=== PATIENT | male | born 1975 | race Caucasian/White ===

== ENCOUNTER → 2022-01-09 11:11 | Outpatient (BNVA) | payer OTHER, SELFPAY | PROVIDERS: PCP Family Medicine; Visit Provider Family Medicine | DX: B34.9 Viral infection, unspecified (principal); J06.9 Acute upper respiratory infection, unspecified | CPT/HCPCS: 87426 ==

== ENCOUNTER → 2022-01-26 09:05 | Outpatient (BNVA) | payer OTHER, SELFPAY | PROVIDERS: PCP Family Medicine; Visit Provider Family Medicine | DX: Z13.6 Encounter for screening for cardiovascular disorders (principal); Z12.5 Encounter for screening for malignant neoplasm of prostate | CPT/HCPCS: 80053; 80061; 85025; G0103 ==

== ENCOUNTER 2022-03-02 05:43 | Day surgery (SDC) | payer OTHER, SELFPAY ==
[2022-02-28 13:03] VITALS: BMI 27.5
[2022-03-02 06:07] VITALS: BP 112/72; PULSE 62; RESP 18; TEMP 36.4; O2SAT 97
[2022-03-02] MEDS: sodium chloride 0.9% 1,000 ML 30 ML IV (06:16)
--- NOTE | 2022-03-02 06:18 | ANES.PREANE2 ---
Pre-Anesthetic Assessment Height/Weight: Height 1.83 m Weight 92.079 kg Temp Pulse Resp BP Pulse Ox O2 Del Method 97.6 F 62 18 112/72 97 03/02/22 06:07 03/02/22 06:07 03/02/22 06:07 03/02/22 06:07 03/02/22 06:07 03/02/22 06:07 Preop Diagnosis: Screening colonoscopy Operation Date: 03/02/22 07:00 Proposed Procedures p Colonoscopy 04685,Z12.11(Not Applicable) - Portillo Brar MD Familial anesthetic complications: None Was Beta Tresa taken within 24 hours: N/A Was Clonidine taken within 24 hours: N/A Last intake: Intake Last Liquid Date 03/01/22 Last Liquid Time 19:00 Last Solid Date 02/28/22 Last Solid Time 18:00 Social Alcohol (Social) and No tobacco Exam alert, oriented x 3, clear to auscultation bilaterally and regular rate & rhythm Airway Submandibular: within normal limits Cervical ROM: within normal limits Mallampati: Class III Dentition: full History/ROS No significant history except as noted Pulmonary Upper Respiratory Infection (COVID January 09) CV/HEM None reported None reported Hepatic None reported GI None reported Metabolic None reported Musc/skel None reported Neuropsych None reported Anesthetic Plan ASA status: 2 Anesthesia: Anesthesia Evaluation, General and MAC Risk of > 500 ml blood loss (7ml/kg in children): No Medications/Allergies Home Medications Medication Instructions Recorded Confirmed Last Taken Type No Known Home Medications 02/28/22 02/28/22 Unknown History Allergies Allergy/AdvReac Type Severity Reaction Status Date / Time Sulfa (Sulfonamide Allergy Unknown Rash, Verified 03/02/22 06:05 Antibiotics) Fever and Difficulty breathing Current Medications Generic Name Dose Route Start Last Admin Trade Name Freq PRN Reason Stop Dose Admin Sodium Chloride 1,000 mls @ 30 mls/hr 03/02/22 06:00 03/02/22 06:16 Sodium Chloride 0.9% IV 03/03/22 05:59 30 mls/hr .Q24H EVON Administration PFSH Anesthesia Medical History No significant past medical history Surgical History No pertinent past surgical history Family History Mother Cancer Psychiatric illness Schizophrenia Denies family history of Diabetes CAD (coronary artery disease) Clotting disorder Dementia Hyperlipidemia Chronic kidney disease (CKD) Suicide Bleeding disorder Family history of premature coronary artery disease Lung disease Hypertension Stroke Social History Smoking and tobacco status: never smoked Household members: spouse Marital status: Current occupational status: employed Current occupation: [employer] Anesthesia Cardiac Studies: No Data to Display
--- NOTE | 2022-03-02 06:36 | P.HP_ITS ---
Same Day Surgery H&P Indication for Procedure/HPI DATE OF PROCEDURE: March 02, 2022 CHIEF COMPLAINT/INDICATIONFOR SURGICAL PROCEDURE: Screening colonoscopy PREOP DIAGNOSIS: Screening colonoscopy PLANNED PROCEDURE: Operation Date: 03/02/22 07:00 Proposed Procedures p Colonoscopy 52326,Z12.11(Not Applicable) - Portillo Brar MD This is a pleasant 46 years old gentleman referred to my practice for screening colonoscopy. Patient never had a colonoscopy before and denies bleeding per rectum or colon cancer history. ROS All systems have been reviewed negative except as for the above or per problem list. Medications/Allergies* Home Medications Medication Instructions Recorded Confirmed Type No Known Home Medications 02/28/22 02/28/22 History Allergies/Adverse Reactions Allergy/AdvReac Type Severity Reaction Status Date / Time Sulfa (Sulfonamide Allergy Unknown Rash, Verified 03/02/22 06:36 Antibiotics) Fever and Difficulty breathing Current Medications: Generic Name Dose Route Start Last Admin Trade Name Freq PRN Reason Stop Dose Admin Sodium Chloride 1,000 mls @ 30 mls/hr 03/02/22 06:00 03/02/22 06:16 Sodium Chloride 0.9% IV 03/03/22 05:59 30 mls/hr .Q24H EVON Administration Pertinent History/Comorbid Conditions* Medical History (Updated 01/12/22 @ 08:20 by Brianna Garcia DO) No significant past medical history Surgical History (Updated 01/06/22 @ 09:08 by Brianna Garcia DO) No pertinent past surgical history Family History (Updated 01/06/22 @ 09:02 by Therese Figueroa LPN) Psychiatric illness Mother Schizophrenia Cancer Mother Denies family history of Diabetes CAD (coronary artery disease) Clotting disorder Dementia Hyperlipidemia Chronic kidney disease (CKD) Suicide Bleeding disorder Family history of premature coronary artery disease Lung disease Hypertension Stroke Social History Smoking and tobacco status: never smoked Household members: spouse Marital status: Current occupational status: employed Current occupation: [employer] Pertinent Exam Findings alert, oriented x 3, clear to auscultation bilaterally, regular rate & rhythm and procedure specific exam findings (Abdominal exam nontender nondistended soft) Recommendations Surgery/Procedure today (Colonoscopy with possible biopsy) Other Plans: Plan of care; After thorough history and physical examination and reviewing the chart, plan to perform screening colonoscopy. I discussed with the patient in details the risks,benefits,alternatives and indications.The risk of aspiration, bleeding, soft tissue injury, perforation of the colon ,missed lesions and other potential concomitant complications were explained to the patient in details,also the potential need for Laproscoy/Laparotomy to repair any related complications including but not limited to colectomy and or Closotomy.The patient understood this well and did agree to proceed. Rationale was carefully and clearly discussed with the patient.Appropriate informed consent have been reviewed and signed All questions have been answered and all concerns have been addressed to patient's satisfaction. Verbal and written Instructions were given to the patient for colonoscopy prep Coding Level of Care Code Acute Law Office Manager for Emy Trevino
[2022-03-02 07:13] VITALS: BP 96/67; PULSE 77; RESP 12; TEMP 36.1; O2SAT 96
[2022-03-02 07:33] VITALS: BP 118/77; PULSE 59; RESP 16; O2SAT 100
--- NOTE | 2022-03-02 14:40 | ANE.PACU2 ---
Inpatient post-anesthesia follow up: Airway intact: Yes Vital signs: Temperature 97 F Pulse Rate 59 Respiratory Rate 16 Blood Pressure 118/77 Pulse Oximetry 100 Oxygen Delivery Me thod Room Air Oxygen Flow Rate Fraction of Inspir ed Oxygen Hydration adequate: Yes Nausea and vomiting: No Pain level: 2 Mental status: Baseline
== END 2022-03-02 07:45 | disposition home or self-care (01) ==
PROVIDERS: PCP Family Medicine; Visit Provider Surgery
PROC: 0DJD8ZZ Inspection of Lower Intestinal Tract, Via Natural or Artificial Opening Endoscopic (ICD-10-PCS; CPT 45378; principal; 2022-03-02 07:00)
DX: Z12.11 Encounter for screening for malignant neoplasm of colon (principal); K57.30 Diverticulosis of large intestine without perforation or abscess without bleeding
CPT/HCPCS: 45378; J2704; J7030

== ENCOUNTER 2022-08-09 16:12 | Emergency (ER) | payer OTHER, BC, SELFPAY ==
[2022-08-09 16:21] VITALS: BP 144/61; PULSE 82; RESP 15; TEMP 36.3; O2SAT 99; BMI 28.7
--- NOTE | 2022-08-09 17:01 | ECG_ITS ---
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
--- NOTE | 2022-08-09 17:01 | XRR_ITS ---
PROCEDURE INFORMATION: Exam: XR Chest Exam date and time: 08/09/2022 5:17 PM Age: 46 years old Clinical indication: Shortness of breath and other: High heart rate; Additional info: Tachycardia TECHNIQUE: Imaging protocol: Radiologic exam of the chest. Views: 1 view. COMPARISON: No relevant prior studies available. FINDINGS: Lungs: Unremarkable. No consolidation. Pleural spaces: Unremarkable. No pleural effusion. No pneumothorax. Heart/Mediastinum: Cardiomegaly. Bones/joints: Unremarkable. XR/XR chest 1V portable [id number] IMPRESSION: Cardiomegaly, negative for infiltrate.
--- NOTE | 2022-08-09 17:05 | ED_ITS ---
HPI - Arrhythmia/Palpitations General: Chief Complaint: Arrhythmia/Palpitations Stated Complaint: states high HR/sob Time Seen by Provider: 08/09/22 16:20 History of Present Illness: Patient presents to the ER with complaints of heart racing after running about 15 feet. He states his heart rate went up to about 100 6070 beats a minute stayed there for 5 or 10 minutes and then went back down to about 100 beats a minute stayed there for little while before calm down to his normal 70 to 80 bpm. This happened approximate hour and a half ago. Patient said he has had this before but never was this bad or stayed this long. Patient states he has no other heart problems such as cardiac disease hypertension high cholesterol etc. patient states he does exercise 5-6 times a week where he routinely gets his heartbeat upwards of 1 60-180 beats a minute MD complaint: rapid heart beat and heart racing Onset (ago): hour(s) (About an hour and a half ago) Duration: constant and now resolved Severity: moderate Context: occurred during exertion Arrhythmia history: other (History of episodic tachycardia) Associated symptoms: Reports short of breath; Deny anxiety, nausea or vomiting Review of Systems General: Reports: 10 or more systems reviewed and unremarkable except in HPI and below Const: Denies: fever(s) or chills Eyes: Denies: change in vision ENMT: Denies: throat pain or odynophagia Card: Reports: palpitations; Denies: chest pain Resp: Denies: dyspnea, productive cough or non-productive cough GI: Denies: abdominal pain, nausea, vomiting or diarrhea : Denies: flank pain, difficulty urinating, dysuria or urinary frequency Musc: Denies: neck pain, back pain or extremity pain Skin/Breast: Denies: rash or pruritus Neuro: Denies: headache(s), numbness in extremities or weakness in extremities Psych: Denies: anxiety or depression Endo: Denies: polyuria or polydipsia Tae/Lymph: Denies: easy bruising or easy bleeding PFS ED PFSH: Medical History No significant past medical history Surgical History No pertinent past surgical history Family History Mother Cancer Psychiatric illness Schizophrenia Denies family history of Diabetes CAD (coronary artery disease) Clotting disorder Dementia Hyperlipidemia Chronic kidney disease (CKD) Suicide Bleeding disorder Family history of premature coronary artery disease Lung disease Hypertension Stroke Social History Smoking and tobacco status: never smoked Household members: spouse Marital status: Current occupational status: employed Current occupation: [employer] Physical Exam Const: COMMON NORMALS: no acute distress, average body habitus, patient oriented x3, no limitations, healthy appearing, alert and well nourished HENMT: COMMON NORMALS: normocephalic, atraumatic, hearing grossly normal bilaterally and moist oral mucous membranes HEAD & SCALP: normocephalic and atraumatic Eye: COMMON NORMALS: Equal, round and reactive pupils present, EOMs intact bilaterally and conjunctivae normal CONJUNCTIVA: Yes conjunctivae normal PUPIL: Yes Equal, round and reactive pupils present Neck/C-Spine: COMMON NORMALS: full ROM, no lymphadenopathy, supple, no JVD and Thyroid normal THYROID: Thyroid normal Lymph: LYMPHATIC: no lymphadenopathy noted Chest: COMMONS NORMALS: normal inspection of the chest and normal palpation of entire chest wall Resp: COMMON NORMALS: normal respiratory effort, No retractions, No use of accessory muscles and clear to auscultation bilaterally AUSCULTATION: clear to auscultation bilaterally Cardio: COMMON NORMALS: no JVD, regular rate, regular rhythm, S1 normal heart sound present, S2 normal heart sound present and No gallops present (Cardio) RATE: regular rate RHYTHM: regular rhythm HEART SOUNDS: S1 normal heart sound present and S2 normal heart sound present GI: COMMON NORMALS: Normal to inspection, nondistended, normoactive bowel sounds present, Soft to palpation, non-tender, No hepatosplenomegaly present and no masses PALPATION: Yes Soft to palpation and Yes No hepatosplenomegaly present : COMMON NORMALS: Yes no CVA tenderness BLADDER/KIDNEY EXAM: Yes no CVA tenderness Back/Pelvis: COMMON NORMALS: no CVA tenderness and thoracic and lumbar spine normal to inspection Extremity: COMMON NORMALS: normal to inspection Neuro: COMMON NORMALS: patient oriented x3, CN's II-XII intact bilaterally, moves all extremities, no focal motor deficits and no sensory deficits noted SENSORIUM/ORIENTATION: Yes alert Psych: COMMON NORMALS: mental status grossly normal, Normal thought process present, cooperative, normal affect and speech normal SPEECH: Yes normal speech THOUGHT PROCESS: Normal thought process present Course Vital Signs: Vital signs: Vital Signs Temperature 97.4 F L 08/09/22 16:21 Pulse Rate 71 08/09/22 19:00 Respiratory Rate 20 H 08/09/22 19:00 Blood Pressure 120/73 08/09/22 19:00 Pulse Oximetry 97 08/09/22 19:00 Oxygen Delivery Me thod 08/09/22 18:22 MDM - Arrhythmia/Palpitations Medical Decision Making Patient presents to the ER with intermittent sustained episodes of tachycardia and palpitations. Lab was ordered that included serial cardiac enzymes, serial EKGs, urinalysis and a urine drug screen and a chest x-ray. All of which was benign. Patient had no episodes while in the ER. I discussed this with the patient as well as his possible need for an outpatient Holter monitor. Patient will follow-up with his primary care practitioner within 1 week to discuss these findings and potential for Holter monitor. Patient is to return to the ER if symptoms return. Differential Diagnosis Likely palpitations, sinus tachycardia and supraventricular tachycardia Lab Data 08/09/22 16:29 08/09/22 16:29 Radiology Impressions Chest X-Ray 08/09/22 17:01 IMPRESSION: Cardiomegaly, negative for infiltrate. Laboratory Results WBC 7.6 10^3/uL (4.0-10.0) 08/09/22 16: RBC 4.69 10^6/uL (4.1-5.3) 08/09/22 16: Hgb 12.1 g/dL (11.7-16.6) 08/09/22 16: Hct 38.2 % (42.0-52.0) L 08/09/22 16: MCV 81.4 fl (80-94) 08/09/22 16: MCH 25.8 pg (28.0-34.0) L 08/09/22 16: MCHC 31.7 g/dL (30.0-36.0) 08/09/22 16: RDW 13.2 % (12.1-15.1) 08/09/22 16: Plt Count 315 10^3/cmm (130-400) 08/09/22 16:29 MPV 9.8 fL (7.4-10.4) 08/09/22 16: Neut % (Auto) 55.5 % 08/09/22 16: Lymph % (Auto) 33.3 % 08/09/22 16: [place] % (Auto) 6.9 % 08/09/22 16: Eos % (Auto) 3.4 % 08/09/22 16: Baso % (Auto) 0.8 % 08/09/22 16: Neut # (Auto) 4.20 10^3/uL (1.8-7.7) 08/09/22 16: Lymph # (Auto) 2.5 10^3/uL (0.8-4.8) 08/09/22 16: [place] # (Auto) 0.5 10^3/uL (0.2-0.9) 08/09/22 16: Eos # (Auto) 0.3 10^3/uL (0.0-0.8) 08/09/22 16: Baso # (Auto) 0.1 10^3/uL (0.0-0.1) 08/09/22 16: Nucleated RBC % (auto) 0 % 08/09/22 16: Nucleated RBCs # 0.0 /100WBC 08/09/22 16: Sodium 140 mmol/L (136-145) 08/09/22 16: Potassium 3.6 mmol/L (3.5-5.1) 08/09/22 16: Chloride 104 mmol/L (98-107) 08/09/22 16: Carbon Dioxide 23 mmol/L (22-29) 08/09/22 16: Anion Gap 16.6 (5-19) 08/09/22 16: BUN 24 mg/dL (6-20) H 08/09/22 16: Creatinine 1.0 mg/dL (0.7-1.2) 08/09/22 16: GFR Calculation 80.4 mL/min (90-130) L 08/09/22 16: Glucose 124 mg/dL (65-115) H 08/09/22 16: Calculated Osmolality 295 mOsm/kg (285-295) 08/09/22 16:29 Calcium 9.3 mg/dL (8.5-10.5) 08/09/22 16:29 Magnesium 2.0 mg/dL (1.7-2.3) 08/09/22 16: Total Bilirubin 0.2 mg/dL (0.15-1.2) 08/09/22 16:29 AST 26 U/L (0-40) 08/09/22 16:29 ALT 15 U/L (0-41) 08/09/22 16:29 Alkaline Phosphatase 76 U/L (40-130) 08/09/22 16:29 Troponin T Baseline 8 ng/L (0-15) 08/09/22 16:29 Troponin T 120 Minute 11.20 ng/L (0-15) 08/09/22 18:59 Delta Troponin T 3.20 ABS# (0-10) 08/09/22 18:59 Total Protein 6.8 g/dL (6.6-8.7) 08/09/22 16: Albumin 4.3 g/dL (3.5-5.2) 08/09/22 16: Globulin 2.5 g/dL (1.3-4.6) 08/09/22 16: TSH 1.82 uIU/mL (0.27-4.20) 08/09/22 16:29 Urine Color Light yellow (Yellow) 08/09/22 17:40 Urine Appearance Hazy (CLEAR) A 08/09/22 17:40 Urine pH 5 (5-7) 08/09/22 17:40 Ur Specific [place] 1.030 (1.005-1.030) 08/09/22 17:40 Urine Protein Neg (Negative) 08/09/22 17:40 Urine Glucose (UA) Norm (Normal) 08/09/22 17:40 Urine Ketones 1+ (Negative) H 08/09/22 17:40 Urine Blood Neg (Negative) 08/09/22 17:40 Urine Nitrate Negative (Negative) 08/09/22 17:40 Urine Bilirubin Neg (Negative) 08/09/22 17:40 Urine Urobilinogen Neg mg/dL (Negative) 08/09/22 17:40 Ur Leukocyte Esterase Negative (Negative) 08/09/22 17:40 Urine RBC None /hpf (0-2) 08/09/22 17:40 Urine WBC None /hpf (0-5) 08/09/22 17:40 Ur Squamous Epith Cells None /hpf (0-5) 08/09/22 17:40 Amorphous Sediment Not Reportable 08/09/22 17:40 Urine Bacteria None /hpf (NONE) 08/09/22 17:40 Urine Opiates Screen Negative ng/mL (Negative) 08/09/22 17:40 Ur Barbiturates Screen Negative ng/mL (Negative) 08/09/22 17:40 Ur Phencyclidine Scrn Negative ng/mL (Negative) 08/09/22 17:40 Ur Amphetamines Screen Negative ng/mL (Negative) 08/09/22 17:40 U Benzodiazepines Scrn Negative ng/mL (Negative) 08/09/22 17:40 Urine Cocaine Screen Negative ng/mL (Negative) 08/09/22 17:40 U Marijuana (THC) Screen Negative ng/mL (Negative) 08/09/22 17:40 EKG Data EKG 1: I personally reviewed and interpreted this EKG as follows: EKG interpretation date: 08/09/22 EKG interpretation time: 17:22 Prior EKG tracings: not available for review Interpretation: EKG shows a normal sinus rhythm with occasional PVCs, ventricular rate of 62 bpm, MT interval 192, QRS duration of 88, QTc of 409, no ST T wave changes Other EKG comments: Chest X-Ray 08/09/22 17:01 IMPRESSION: Cardiomegaly, negative for infiltrate. EKG 2: I personally reviewed and interpreted this EKG as follows: EKG interpretation date: 08/09/22 EKG interpretation time: 19:36 Prior EKG tracings: available for review Interpretation: EKG shows sinus bradycardia with a first-degree AV block with a ventricular rate of 59 bpm, MT interval of 225, QRS duration of 83, QTc of 406, no ST or T wave changes Other EKG comments: Chest X-Ray 08/09/22 17:01 IMPRESSION: Cardiomegaly, negative for infiltrate. Discharge Plan Discharge Patient Disposition: Home Clinical Impression: Tachycardia, paroxysmal, Heart palpitations Condition: Stable Prescriptions: No Action Flonase Allergy Relief 50 mcg/actuation [place],Suspension 1 spray INTRANASAL DAILY Rx Instructions: administer into each nostril Lenora-D 24 Hour 180-240 mg Tablet Extended Release 24 Hr 1 tab PO QAM PRN (Reason: Allergy Symptoms) Discharge Orders: Discharge ED (Routine); Ordered 08/09/22 Ordered By: Darrian Randall Referrals: Brianna Garcia DO [Primary Care Provider] - Discharge Diet: Usual diet Discharge Activity: Resume usual activity Patient Instructions: Tachycardia (ED), Heart Palpitations (ED) Activity Restrictions/Additional Instructions: Follow-up with your primary care physician in approximately 1 to 2 weeks to discuss possible further work-up which may include a Holter monitor. Coding Level of Care Code ED Social And Political Studies Professor for Emy Trevino
[2022-08-09 17:21] LABS: Basophils # 0.1 10^3/uL (0.0-0.1); Basophils % 0.8 %; Eosinophils # 0.3 10^3/uL (0.0-0.8); Eosinophils % 3.4 %; Hematocrit 38.2 % (42.0-52.0); Hemoglobin 12.1 g/dL (11.7-16.6); Lymphocytes # 2.5 10^3/uL (0.8-4.8); Lymphocytes % 33.3 %; Mean Corpuscular HGB Conc 31.7 g/dL (30.0-36.0); Mean Corpuscular Hemoglobin 25.8 pg (28.0-34.0); Mean Corpuscular Volume 81.4 fl (80-94); Mean Platelet Volume 9.8 fL (7.4-10.4); Monocytes # 0.5 10^3/uL (0.2-0.9); Monocytes % 6.9 %; Neutrophils % 55.5 %; Nucleated Red Blood Cells % 0 %; Platelet Count 315 10^3/cmm (130-400); Red Blood Count 4.69 10^6/uL (4.1-5.3); Red Cell Distribution Width 13.2 % (12.1-15.1); White Blood Count 7.6 10^3/uL (4.0-10.0)
[2022-08-09 17:31] LABS: Troponin(5th) Baseline 8 ng/L (0-15)
[2022-08-09 18:04] LABS: Amphetamines Screen Urine Negative (Negative); Barbiturates Screen Urine Negative (Negative); Benzodiazepines Screen Urine Negative (Negative); Cocaine Screen Urine Negative (Negative); Opiate Screen Urine Negative (Negative); PCP Screen Urine Negative (Negative); THC Screen Urine Negative (Negative)
[2022-08-09 18:09] LABS: Add Urine Microscopic? YES; Bilirubin Urine Neg (Negative); Blood Urine Neg (Negative); Glucose Urine UA Norm (Normal); Ketones Urine 1+ (Negative); Leukocyte Esterase Urine Negative (Negative); Nitrate Urine Negative (Negative); Protein Urine Neg (Negative); Urine Appearance Hazy (CLEAR); Urine Color Light yellow (Yellow); Urobilinogen Urine Neg (Negative); pH Urine 5 (5-7)
[2022-08-09 18:10] LABS: Add Urine Culture? No
[2022-08-09 18:11] LABS: Alanine Aminotransferase 15 U/L (0-41); Albumin Level 4.3 g/dL (3.5-5.2); Alkaline Phosphatase 76 U/L (40-130); Aspartate Amino Transferase 26 U/L (0-40); Blood Urea Nitrogen 24 mg/dL (6-20); Calcium 9.3 mg/dL (8.5-10.5); Carbon Dioxide 23 mmol/L (22-29); Globulin 2.5 g/dL (1.3-4.6); Glomerular Filtration Rate 80.4 mL/min (90-130); Glucose 124 mg/dL (65-115); Thyroid Stimulating Hormone 1.82 uIU/mL (0.27-4.20); Total Bilirubin 0.2 mg/dL (0.15-1.2); Total Protein 6.8 g/dL (6.6-8.7)
[2022-08-09 18:22] VITALS: BP 117/72; PULSE 68; RESP 18; O2SAT 97
[2022-08-09 18:27] LABS: Anion Gap 16.6 (5-19); Chloride 104 mmol/L (98-107); Osmolality Calculated 295 mOsm/kg (285-295); Potassium 3.6 mmol/L (3.5-5.1); Sodium 140 mmol/L (136-145)
[2022-08-09 19:00] VITALS: BP 120/73; PULSE 71; RESP 20; O2SAT 97
--- NOTE | 2022-08-09 19:01 | ECG_ITS ---
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
[2022-08-09 19:55] VITALS: BP 119/78; PULSE 70; RESP 18; O2SAT 98
== END 2022-08-09 19:56 | disposition home or self-care (01) ==
PROVIDERS: Emergency Provider Emergency Medicine; PCP Family Medicine
DX: I47.9 Paroxysmal tachycardia, unspecified (principal); R00.2 Palpitations; I51.7 Cardiomegaly
CPT/HCPCS: 36415; 71045; 80053; 80306; 81001; 83735; 84443; 84484; 85025; 93005; 99285

== ENCOUNTER 2022-09-25 12:52 | Outpatient (CLI) | payer BC, SELFPAY ==
--- NOTE | 2022-09-25 12:45 | USCV_ITS ---
Juventino Singh Age: 46 Gender: M : 1975 Exam Date: 09/25/2022 13:15 Ordering Phys: Brianna Garcia DO Technologist: [place] [facility] [place]: ? cardiomyo BP: / HR: 55 Rhythm: Sinus Technical Quality: Adequate MEASUREMENTS (Male / Female) Normal Values 2D ECHO LV Diastolic Diameter PLAX 3.8 cm 4.2 - 5.9 / 3.9 - 5.3 cm LV Systolic Diameter PLAX 2.6 cm IVS Diastolic Thickness 1.2 cm 0.6 - 1.0 / 0.6 - 0.9 cm IVS Systolic Thickness 1.5 cm LVPW Diastolic Thickness 1.1 cm 0.6 - 1.0 / 0.6 - 0.9 cm LVPW Systolic Thickness 1.7 cm LVOT Diameter 2.0 cm LV Ejection Fraction 2D Teich 60.5 % LA Diameter 3.7 cm IVC Diameter 1.6 cm M-MODE Aortic Annulus Diameter 3.5 cm LA Ao Ratio MM 1.2 DOPPLER AV Peak Velocity 140.0 cm/s LVOT Peak Velocity 116.0 cm/s AV Area Cont Eq vti 2.2 cm squared AV Area Cont Eq pk 2.6 cm squared MV Area PHT 5.0 cm squared Mitral E to A Ratio 1.7 MV E' Velocity 56.4 cm/s Mitral E to MV E' Ratio 7.3 Mitral E to LV E' Lateral Ratio 6.4 Mitral E to LV E' Septal Ratio 8.3 TR Peak Velocity 152.5 cm/s TR Peak Gradient 9.3 mmHg TV Peak E Velocity 97.0 cm/s Right Atrial Pressure 3.0 mmHg Pulmonary Artery Systolic Pressu 12.3 mmHg FINDINGS Left Ventricle Normal left ventricular size and systolic function, EF 60%.no regional wall motion abnormalities. Right Ventricle The right ventricle is normal in size and function. Right Atrium The right atrium is normal in size. Left Atrium The left atrium is normal in size. Mitral Valve Trace mitral valve regurgitation. Aortic Valve No gross abnormalities noted Tricuspid Valve Mild tricuspid valve regurgitation. Pulmonic Valve No gross abnormalities noted Pericardium Normal pericardium without effusion. Aorta Normal ascending aorta dimension. IVC The inferior vena cava appears normal. CONCLUSIONS Normal left ventricular size and systolic function, EF 60%.no regional wall motion abnormalities. Mild tricuspid valve regurgitation. Trace mitral valve regurgitation. Estimated pulmonary artery peak systolic pressure within normal limits There is no pericardial effusion. There are no intracardiac masses. No similar previous studies are available for comparison Dr Neha Arguelles MD [facility] (Electronically Signed) Final Date: 27 Sep 2022 01:48 S
== END 2022-09-25 12:53 | disposition home or self-care (01) ==
LOC: RAD 13:01
PROVIDERS: PCP Family Medicine; Visit Provider Family Medicine
DX: I08.1 Rheumatic disorders of both mitral and tricuspid valves (principal)
CPT/HCPCS: 93306

== ENCOUNTER 2023-09-21 12:29 | Outpatient (CLI) | payer BC, SELFPAY ==
--- NOTE | 2023-09-21 13:00 | CT_ITS ---
WS: [id number] CT ABDOMEN AND PELVIS WITH CONTRAST HISTORY: right lower quandrant pain TECHNIQUE: Imaging performed of the abdomen and pelvis with IV contrast. Single phase imaging of the abdomen. Coronal and sagittal reformats are submitted. All CT scans at [facility] use at [address] one of these dose optimization techniques: automated exposure control; mA and/or kV adjustment per patient size (includes targeted exams where dose is matched to clinical indication); or iterative re construction. IV CONTRAST: Omnipaque 350; 100 mL IV. Oral contrast: Yes. DLP: 379.03 mGy.cm COMPARISON: None available. Lower thorax: Lung bases are clear. Heart is normal size. No hiatal hernia. Liver/biliary system: Normal size liver. 1.7 x 1.8 cm cyst in the LEFT hepatic lobe. There is an sammy tional smaller cyst in the LEFT hepatic lobe also. Tiny additional low-attenuation lesions in the RIG HT lobe. Gallbladder: Normal. No gallstones or wall thickening. No pericholecystic fluid. Pancreas: Normal size pancreas and pancreatic duct. No adjacent inflammation. Spleen: Normal size spleen. No mass or infarct. Adrenal glands: Normal. Right kidney: Normal. Left kidney: Normal. Aorta: Normal. Lymphadenopathy: None. Free fluid: None. GI tract: Unremarkable. Abdominal wall: Unremarkable abdominal wall. No hernia. Pelvis: No free fluid or adenopathy within the pelvis. No mass or adenopathy in the inguinal regions. There are small lymph nodes in the groin but no suspicious mass. There is no hernia. Bones: Unremarkable. IMPRESSION: 1. No acute abdominal or pelvic abnormalities. 2. No mass at the RIGHT inguinal region. 3. Hepatic cysts.
[2023-09-21] MEDS: iohexol 350 mg/mL 500 mL Btl (per mL) PO (13:34)
[2023-09-21] MEDS: iohexol 350 mg/mL 500 mL Btl (per mL) IV (13:34)
== END 2023-09-21 12:30 | disposition home or self-care (01) ==
LOC: RAD 12:29
PROVIDERS: PCP Family Medicine; Visit Provider Family Medicine
DX: K76.89 Other specified diseases of liver (principal)
CPT/HCPCS: 74177; Q9967

== ENCOUNTER 2023-10-17 05:56 | Outpatient (CLI) | payer BC, SELFPAY ==
--- NOTE | 2023-10-17 06:15 | US_ITS ---
WS: [id number] RIGHT UPPER QUADRANT ULTRASOUND HISTORY: cyst on liver COMPARISON: CT 09/21/2023 Liver: 14.2 cm in length. Normal size liver. 2 simple hepatic cysts are reidentified as seen on the C T from 09/21/2023. The largest cyst towards the diaphragm measures 2.0 x 1.7 x 2.3 cm. No solid mass. No intrahepatic duct dilatation. Portal Vein: Normal hepatopetal flow with monophasic waveform. Gallbladder: Normally distended gallbladder with no stones or wall thickening. CBD: 0.3 cm Pancreas: Normal size and echogenicity. Right kidney: 11.3 cm in length. Normal size and echogenicity. No hydronephrosis or mass. Aorta and IVC: Unremarkable abdominal aorta and IVC. No ascites. US/US liver [id number] IMPRESSION: 1. Negative gallbladder. 2. Benign hepatic cysts. Cysts were also noted on a prior recent CT from 2023. No solid mass.
== END 2023-10-17 05:57 | disposition home or self-care (01) ==
LOC: RAD 05:56
PROVIDERS: PCP Family Medicine; Visit Provider Family Medicine
DX: K76.89 Other specified diseases of liver (principal)
CPT/HCPCS: 76705

== ENCOUNTER 2024-03-20 10:01 | Outpatient (CLI) | payer BC, SELFPAY ==
--- NOTE | 2024-03-20 10:10 | XR_ITS ---
WS: [id number] Exam: XR pelvis 1-2V* [id number] Date/Time of Exam: 03/20/2024 10:33 AM Reason For Exam: R hip pain--anterior iliac crest No fracture noted. The hips are intact bilaterally. Normal soft tissues. XR/XR pelvis 1-2V* [id number] IMPRESSION: 1. Negative pelvis.
--- NOTE | 2024-03-20 10:10 | XR_ITS ---
WS: [email or web address] Exam: XR hip RT 2-3V wo/w pel* [id number] Date/Time of Exam: 03/20/2024 10:33 AM Reason For Exam: pain R hip anterior No fracture or dislocation. The joint compartment is preserved. Mild soft tissue calcification along the greater trochanter that might indicate calcific bursitis. XR/XR hip RT 2-3V wo/w pel* [id number] IMPRESSION: 1. Small soft tissue calcification along the greater trochanter that might repr esent calcific bursitis. The hip is otherwise normal.
== END 2024-03-20 10:02 | disposition home or self-care (01) ==
PROVIDERS: PCP Family Medicine; Visit Provider Family Medicine
DX: M70.61 Trochanteric bursitis, right hip (principal)
CPT/HCPCS: 72170; 73502

== ENCOUNTER → 2024-03-25 09:05 | Outpatient (BNVA) | payer BC, SELFPAY | PROVIDERS: PCP Family Medicine; Visit Provider Family Medicine | DX: Z00.00 Encounter for general adult medical examination without abnormal findings (principal); R71.8 Other abnormality of red blood cells; R73.9 Hyperglycemia, unspecified | CPT/HCPCS: 80053; 80061; 82607; 83036; 84443; 85025 ==

== ENCOUNTER 2024-04-29 07:33 | Outpatient (RCR) | payer BC, SELFPAY | END 2024-05-27 23:59 | disposition home or self-care (01) | LOC: SPT 07:33 | PROVIDERS: PCP Family Medicine; Visit Provider Family Medicine | DX: M25.551 Pain in right hip (principal) | CPT/HCPCS: 97110; 97161 ==

== ENCOUNTER 2024-05-28 06:00 | Outpatient (RCR) | payer BC, SELFPAY | END 2024-06-14 23:59 | disposition home or self-care (01) | LOC: SPT 06:00 | PROVIDERS: PCP Family Medicine; Visit Provider Family Medicine | DX: M25.551 Pain in right hip (principal) | CPT/HCPCS: 97110; 97164 ==